=== PATIENT | male | born 1955 | race African-American/Black ===

== ENCOUNTER 2016-06-10 13:52 | Inpatient (IN) | payer MEDICAID ==
[~2016-06-10] VITALS: Ht 167.6 cm; Wt 52.2 kg
[~2016-06-10 13:52] MED LIST: ALBU18HF2 IH; ASPI325T2 PO; PHEN100C4 PO; [UNRECOGNIZED DRUG - CODE] PO
[2016-06-10] MEDS ORDERED: METHYLPREDNISOLONE SOD SUCC 125 MG/2 ML VIAL IV STA (14:38)
[2016-06-10 15:11] LABS: BASOPHILS % 0.6 % (0.0-2.0); EOSINOPHILS % 0.5 % (0.0-5.0); HEMATOCRIT. 42.5 % (42.0-52.0); HEMOGLOBIN. 14.1 g/dL (14.0-18.0); LYMPHOCYTES % 12.5 % (20.0-50.0); MEAN CORPUSCULAR HEMOGLOBIN 32.5 pg (28.0-32.0); MEAN CORPUSCULAR HGB CONC 33.1 g/dL (31.0-37.0); MEAN CORPUSCULAR VOLUME 98.3 fL (80.0-94.0); MONOCYTES % 6.2 % (2.0-8.0); NEUTROPHILS % 80.2 % (40.0-76.0); PLATELET 299 x1000/uL (130-400); RED BLOOD CELL COUNT 4.32 mill/uL (4.7-6.1); RED CELL DISTRIBUTION WIDTH 13.6 % (11.6-14.6)
[2016-06-10 15:15] LABS: CHLORIDE 106 mEq/L (98-107)
[2016-06-10] MEDS ORDERED: IPRATROPIUM/ALBUTEROL 0.5-3(2.5)MG/3ML NEB HHN ONE ×3 (15:15→20:30)
[2016-06-10 15:25] LABS: PARTIAL THROMBOPLASTIN TIME 27.4 sec (24.0-34.0); PROTHROMBIN TIME 10.3 sec
[2016-06-10 15:27] LABS: ALANINE AMINOTRANSFERASE 36 IU/L (13-61); ALBUMIN 3.8 g/dL (3.4-5.0); ANION GAP 12; CALCIUM 9.1 mg/dL (8.5-10.1); CARBON DIOXIDE 31 mEq/L (21-32); INDEX HEMOLYSI 3 (1-3); INDEX ICTERIC 1 (1-4); INDEX LIPEMIC 1 (1-3); NT PRO B-TYPE NATRIURETIC PEP 70 pg/mL (5-125); TROPONIN I < 0.02 ng/mL (0.00-0.04); UREA NITROGEN BLOOD 8 mg/dL (7-21); eGFR > 60 mL/min (>60)
[2016-06-10 16:12] LABS: CLARITY URINE CLEAR (CLEAR); COLOR URINE YELLOW (YELLOW); GLUCOSE URINE NEGATIVE (NEGATIVE); KETONES URINE 1+ (NEGATIVE); LEUKOCYTE ESTERASE URINE TRACE (NEGATIVE); NITRITE URINE POSITIVE (NEGATIVE); OCCULT BLOOD URINE TRACE (NEGATIVE); PH URINE 5.5 (4.5-8.0); PROTEIN URINE NEGATIVE (NEGATIVE); SPECIFIC GRAVITY URINE 1.021 (1.005-1.030)
[2016-06-10 17:19] LABS: BACTERIA URINE 2+; RBC URINE 0-2 /hpf (0-2); SQUAMOUS EPITHELIAL CELL URINE RARE /lpf (RARE/1+); WBC URINE 0-2 /hpf (0-2)
[2016-06-10 20:00] VITALS: BP 134/114
[2016-06-10] MEDS ORDERED: IPRATROPIUM/ALBUTEROL 0.5-3(2.5)MG/3ML NEB ONE (20:36)
[2016-06-10] MEDS ORDERED: ASPI-1035 PO (21:59)
[2016-06-10] MEDS ORDERED: INFLUENZA VIRUS VACCINE 0.5ML SYR IM ONE (22:00)
[2016-06-10] MEDS ORDERED: HYDR-3927 PO (22:01)
[2016-06-10 22:04] VITALS: BP 134/114
[2016-06-10] MEDS ORDERED: MAGNESIUM/ALUMINUM HYDROXIDE/SIMETHICONE 30ML UDC PO PRN (22:30)
[2016-06-10] MEDS ORDERED: GUAIFENESIN 200MG/10ML SUGAR FREE UDC PO PRN (22:30)
[2016-06-10] MEDS ORDERED: IPRATROPIUM/ALBUTEROL 0.5-3(2.5)MG/3ML NEB INH PRN (22:30)
[2016-06-10] MEDS ORDERED: ACETAMINOPHEN 325MG TABLET PO PRN (22:30)
[2016-06-10] MEDS ORDERED: DOCUSATE SODIUM 100MG CAPSULE PO PRN (22:30)
[2016-06-10] MEDS ORDERED: ONDANSETRON HCL 4MG/2ML VIAL IV PRN (22:30)
[2016-06-10] MEDS: AZITHROMYCIN 500 MG TABLET PO SCH (23:19)
[2016-06-10] MEDS: HYDROCODONE/ACETAMINOPHEN 5/325MG TABLET PO PRN (23:24)
[2016-06-11] VITALS: BP 123/75
[2016-06-11 00:14] LABS: CHLORIDE 102 mEq/L (98-107); INDEX HEMOLYSI 1 (1-3); INDEX ICTERIC 1 (1-4); INDEX LIPEMIC 1 (1-3)
[2016-06-11 00:20] LABS: ANION GAP 14; CARBON DIOXIDE 26 mEq/L (21-32); MAGNESIUM 1.9 mg/dL (1.8-2.4); PHENYTOIN 1.1 ug/mL (10-20); UREA NITROGEN BLOOD 13 mg/dL (7-21); eGFR > 60 mL/min (>60)
[2016-06-11] MEDS: METHYLPREDNISOLONE SOD SUCC 40 MG/ML VIAL IV SCH ×3 (01:32→19:32)
[2016-06-11] MEDS: HYDROCODONE/ACETAMINOPHEN 5/325MG TABLET PO PRN ×3 (03:25→20:15)
[2016-06-11 04:00] VITALS: BP 144/93
[2016-06-11 04:00] LABS: *AMPHETAMINES SCREEN URINE NEGATIVE (NEGATIVE); *BARBITURATES SCREEN URINE NEGATIVE (NEGATIVE); *BENZODIAZEPINES SCREEN URINE PRESUMTIVE POSITIVE (NEGATIVE); *COCAINE SCREEN URINE PRESUMTIVE POSITIVE (NEGATIVE); CANNABINOID URINE SCREEN NEGATIVE (NEGATIVE); ECSTASY MDMA SCREEN URINE NEGATIVE (NEGATIVE); METHADONE URINE SCREEN NEGATIVE (NEGATIVE); OPIATES URINE SCREEN NEGATIVE (NEGATIVE); PHENCYCLIDINE URINE SCREEN NEGATIVE (NEGATIVE)
[2016-06-11] MEDS: PHENYTOIN SODIUM EXTENDED 100MG CAPSULE PO SCH ×3 (05:49→22:05)
[2016-06-11] MEDS: OMEPRAZOLE 20MG CAPSULE EXTENDED RELEASE PO SCH ×2 (05:49→19:32)
[2016-06-11 05:50] LABS: HEMATOCRIT. 39.5 % (42.0-52.0); HEMOGLOBIN. 13.2 g/dL (14.0-18.0); MEAN CORPUSCULAR HEMOGLOBIN 32.5 pg (28.0-32.0); MEAN CORPUSCULAR HGB CONC 33.3 g/dL (31.0-37.0); MEAN CORPUSCULAR VOLUME 97.6 fL (80.0-94.0); MEAN PLATELET VOLUME 8.4 fl (7.4-10.4); PLATELET 278 x1000/uL (130-400); RED BLOOD CELL COUNT 4.05 mill/uL (4.7-6.1); RED CELL DISTRIBUTION WIDTH 13.3 % (11.6-14.6); WHITE BLOOD COUNT 8.3 x1000/uL (4.5-11.0)
[2016-06-11 06:37] LABS: CREATINE KINASE 81 IU/L (39-308); CREATINE KINASE MB FRACTION 2.3 ng/mL (0.5-3.6); HDL CHOLESTEROL 128 mg/dL (40-59); INDEX HEMOLYSI 1 (1-3); INDEX ICTERIC 1 (1-4); INDEX LIPEMIC 1 (1-3); LDL CHOLESTEROL 87 mg/dL (5-100); TRIGLYCERIDE 52 mg/dL (0-150); TROPONIN I < 0.02 ng/mL (0.00-0.04)
[2016-06-11 06:42] LABS: THYROID STIMULATING HORMONE 0.58 uIU/mL (0.36-3.74)
[2016-06-11 07:27] LABS: DIFFERENTIAL COMMENT 1
[2016-06-11 08:00] VITALS: BP 157/105
[2016-06-11] MEDS: BUDESONIDE 0.5MG/2ML NEB HHN SCH ×2 (08:25→20:44)
[2016-06-11] MEDS: FOLIC ACID 1MG TABLET PO SCH (09:36)
[2016-06-11] MEDS: MULTIVITAMINS,THER W-MINERALS TABLET PO SCH (09:36)
[2016-06-11] MEDS: AZITHROMYCIN 500 MG TABLET PO SCH (09:36)
[2016-06-11] MEDS: ENOXAPARIN 40MG/0.4ML SYR SUBCUT SCH (09:36)
[2016-06-11] MEDS: ASPIRIN 81MG EC TABLET PO SCH (09:36)
[2016-06-11] MEDS: THIAMINE HCL 100MG TABLET PO SCH (09:36)
[2016-06-11] MEDS: CLONIDINE 0.1MG TABLET PO PRN (09:37)
[2016-06-11] MEDS: ARIPIPRAZOLE 10MG TABLET PO SCH (09:38)
[2016-06-11] MEDS: NICOTINE 14MG PATCH TD SCH (09:40)
[2016-06-11 12:00] VITALS: BP 122/83
[2016-06-11] MEDS ORDERED: PHENYTOIN SODIUM 500 MG in SODIUM CHLORIDE 0.9% 100 ML IV NR (15:30)
[2016-06-11 15:53] LABS: CREATINE KINASE 73 IU/L (39-308); CREATINE KINASE MB FRACTION 1.9 ng/mL (0.5-3.6); INDEX HEMOLYSI 1 (1-3); TROPONIN I < 0.02 ng/mL (0.00-0.04)
[2016-06-11 16:00] VITALS: BP 121/82
[2016-06-11] MEDS: CEFTRIAXONE 1 G PREMIX 50 ML IV SCH (16:01)
[2016-06-11 16:05] LABS: PLATELET ESTIMATE NORMAL
[2016-06-11 20:00] VITALS: BP 115/77
[2016-06-11] MEDS: IPRATROPIUM/ALBUTEROL 0.5-3(2.5)MG/3ML NEB HHN SCH (20:44)
[2016-06-12] VITALS: BP 126/86
[2016-06-12] MEDS: IPRATROPIUM/ALBUTEROL 0.5-3(2.5)MG/3ML NEB HHN SCH ×4 (00:37→21:15)
[2016-06-12] MEDS: METHYLPREDNISOLONE SOD SUCC 40 MG/ML VIAL IV SCH ×3 (02:22→20:30)
[2016-06-12] MEDS: HYDROCODONE/ACETAMINOPHEN 5/325MG TABLET PO PRN ×3 (02:56→20:30)
[2016-06-12 04:00] VITALS: BP 122/87
[2016-06-12 05:30] LABS: HEMATOCRIT. 36.2 % (42.0-52.0); MEAN CORPUSCULAR HEMOGLOBIN 32.6 pg (28.0-32.0); MEAN CORPUSCULAR HGB CONC 33.2 g/dL (31.0-37.0); MEAN CORPUSCULAR VOLUME 98.1 fL (80.0-94.0); MEAN PLATELET VOLUME 8.3 fl (7.4-10.4); PLATELET 253 x1000/uL (130-400); RED BLOOD CELL COUNT 3.69 mill/uL (4.7-6.1); RED CELL DISTRIBUTION WIDTH 13.3 % (11.6-14.6)
[2016-06-12 05:37] LABS: ANION GAP 14; CALCIUM 8.7 mg/dL (8.5-10.1); CARBON DIOXIDE 26 mEq/L (21-32); CHLORIDE 103 mEq/L (98-107); INDEX HEMOLYSI 1 (1-3); INDEX ICTERIC 1 (1-4); INDEX LIPEMIC 1 (1-3); PHENYTOIN 10.6 ug/mL (10-20); UREA NITROGEN BLOOD 10 mg/dL (7-21); eGFR > 60 mL/min (>60)
[2016-06-12] MEDS: PHENYTOIN SODIUM EXTENDED 100MG CAPSULE PO SCH ×3 (06:40→22:29)
[2016-06-12] MEDS: OMEPRAZOLE 20MG CAPSULE EXTENDED RELEASE PO SCH ×2 (06:40→17:10)
[2016-06-12 06:47] LABS: DIFFERENTIAL COMMENT 1
[2016-06-12 08:00] VITALS: BP 143/101
[2016-06-12 08:54] LABS: PLATELET ESTIMATE NORMAL
[2016-06-12] MEDS: THIAMINE HCL 100MG TABLET PO SCH (09:11)
[2016-06-12] MEDS: ENOXAPARIN 40MG/0.4ML SYR SUBCUT SCH (09:11)
[2016-06-12] MEDS: AZITHROMYCIN 500 MG TABLET PO SCH (09:11)
[2016-06-12] MEDS: MULTIVITAMINS,THER W-MINERALS TABLET PO SCH (09:11)
[2016-06-12] MEDS: ARIPIPRAZOLE 10MG TABLET PO SCH (09:11)
[2016-06-12] MEDS: FOLIC ACID 1MG TABLET PO SCH (09:11)
[2016-06-12] MEDS: NICOTINE 14MG PATCH TD SCH (09:12)
[2016-06-12] MEDS: ASPIRIN 81MG EC TABLET PO SCH (09:12)
[2016-06-12] MEDS: CLONIDINE 0.1MG TABLET PO PRN (09:13)
[2016-06-12] MEDS: BUDESONIDE 0.5MG/2ML NEB HHN SCH ×2 (10:19→21:15)
[2016-06-12] MEDS: CEFTRIAXONE 1 G PREMIX 50 ML IV SCH (11:34)
[2016-06-12 12:00] VITALS: BP 122/87
[2016-06-12 16:00] VITALS: BP 131/92
[2016-06-12 19:56] VITALS: BP 123/96
[2016-06-13] VITALS: BP 144/95
[2016-06-13] MEDS: IPRATROPIUM/ALBUTEROL 0.5-3(2.5)MG/3ML NEB HHN SCH ×3 (00:43→20:15)
[2016-06-13] MEDS: CLONIDINE 0.1MG TABLET PO PRN ×2 (00:52→07:01)
[2016-06-13 04:00] VITALS: BP 142/107
[2016-06-13] MEDS: PHENYTOIN SODIUM EXTENDED 100MG CAPSULE PO SCH ×3 (06:19→23:10)
[2016-06-13] MEDS: OMEPRAZOLE 20MG CAPSULE EXTENDED RELEASE PO SCH (06:19)
[2016-06-13 08:00] VITALS: BP 127/93
[2016-06-13] MEDS: MULTIVITAMINS,THER W-MINERALS TABLET PO SCH (08:18)
[2016-06-13] MEDS: ASPIRIN 81MG EC TABLET PO SCH (08:18)
[2016-06-13] MEDS: THIAMINE HCL 100MG TABLET PO SCH (08:18)
[2016-06-13] MEDS: AZITHROMYCIN 500 MG TABLET PO SCH (08:18)
[2016-06-13] MEDS: ARIPIPRAZOLE 10MG TABLET PO SCH (08:18)
[2016-06-13] MEDS: NICOTINE 14MG PATCH TD SCH (08:18)
[2016-06-13] MEDS: METHYLPREDNISOLONE SOD SUCC 40 MG/ML VIAL IV SCH (08:18)
[2016-06-13] MEDS: FOLIC ACID 1MG TABLET PO SCH (08:18)
[2016-06-13] MEDS: ENOXAPARIN 40MG/0.4ML SYR SUBCUT SCH (08:19)
[2016-06-13] MEDS: BUDESONIDE 0.5MG/2ML NEB HHN SCH ×2 (10:25→20:14)
[2016-06-13] MEDS: CEFTRIAXONE 1 G PREMIX 50 ML IV SCH (11:41)
[2016-06-13 12:00] VITALS: BP 145/101
[2016-06-13 16:00] VITALS: BP 130/89
[2016-06-13 20:00] VITALS: BP 137/97
[2016-06-13] MEDS: HYDROCODONE/ACETAMINOPHEN 5/325MG TABLET PO PRN (20:27)
[2016-06-14] VITALS: BP 140/103
[2016-06-14 04:00] VITALS: BP 136/100
[2016-06-14] MEDS: IPRATROPIUM/ALBUTEROL 0.5-3(2.5)MG/3ML NEB HHN SCH ×3 (04:18→14:10)
[2016-06-14] MEDS: CLONIDINE 0.1MG TABLET PO PRN (05:16)
[2016-06-14] MEDS: PHENYTOIN SODIUM EXTENDED 100MG CAPSULE PO SCH ×2 (05:16→13:33)
[2016-06-14 06:02] LABS: BASOPHILS % 0.2 % (0.0-2.0); EOSINOPHILS % 0.7 % (0.0-5.0); HEMATOCRIT. 38.8 % (42.0-52.0); HEMOGLOBIN. 12.9 g/dL (14.0-18.0); MEAN CORPUSCULAR HEMOGLOBIN 32.3 pg (28.0-32.0); MEAN CORPUSCULAR HGB CONC 33.1 g/dL (31.0-37.0); MEAN CORPUSCULAR VOLUME 97.5 fL (80.0-94.0); MEAN PLATELET VOLUME 8.6 fl (7.4-10.4); MONOCYTES % 7.1 % (2.0-8.0); PLATELET 223 x1000/uL (130-400); RED BLOOD CELL COUNT 3.98 mill/uL (4.7-6.1); RED CELL DISTRIBUTION WIDTH 13.1 % (11.6-14.6); WHITE BLOOD COUNT 8.2 x1000/uL (4.5-11.0)
[2016-06-14 06:06] LABS: ANION GAP 14; CALCIUM 8.5 mg/dL (8.5-10.1); CARBON DIOXIDE 27 mEq/L (21-32); CHLORIDE 103 mEq/L (98-107); INDEX HEMOLYSI 1 (1-3); INDEX ICTERIC 1 (1-4); INDEX LIPEMIC 1 (1-3); UREA NITROGEN BLOOD 13 mg/dL (7-21); eGFR > 60 mL/min (>60)
[2016-06-14] MEDS ORDERED: OMEPRAZOLE 20MG CAPSULE EXTENDED RELEASE PO SCH (06:45)
[2016-06-14 08:00] VITALS: BP 156/107
[2016-06-14] MEDS: BUDESONIDE 0.5MG/2ML NEB HHN SCH (08:15)
[2016-06-14] MEDS ORDERED: PREDNISONE 20MG TABLET PO SCH (09:00)
[2016-06-14] MEDS ORDERED: FAMOTIDINE 20MG TABLET PO SCH (09:00)
[2016-06-14] MEDS: ASPIRIN 81MG EC TABLET PO SCH (09:00)
[2016-06-14] MEDS: NICOTINE 14MG PATCH TD SCH (09:28)
[2016-06-14] MEDS: ENOXAPARIN 40MG/0.4ML SYR SUBCUT SCH (09:28)
[2016-06-14] MEDS: AZITHROMYCIN 500 MG TABLET PO SCH (09:30)
[2016-06-14] MEDS: MULTIVITAMINS,THER W-MINERALS TABLET PO SCH (09:30)
[2016-06-14] MEDS: THIAMINE HCL 100MG TABLET PO SCH (09:30)
[2016-06-14] MEDS: ARIPIPRAZOLE 10MG TABLET PO SCH (09:30)
[2016-06-14] MEDS: FOLIC ACID 1MG TABLET PO SCH (09:30)
[2016-06-14 12:00] VITALS: BP 124/94
[2016-06-14] MEDS: CEFTRIAXONE 1 G PREMIX 50 ML IV SCH (13:33)
[2016-06-14] MEDS: HYDROCODONE/ACETAMINOPHEN 5/325MG TABLET PO PRN (13:44)
[2016-06-14 16:00] VITALS: BP 152/115
[2016-06-14 16:52] VITALS: BP 126/98
== END 2016-06-14 18:36 | disposition home or self-care (01) | DRG 720 ==
LOC: ER 15:10 → 5WST 18:40
PROVIDERS: ADMIT Internal Medicine; ATTEND Internal Medicine
DX: A41.9 Sepsis, unspecified organism (principal); J96.00 Acute respiratory failure, unspecified whether with hypoxia or hypercapnia; J44.1 Chronic obstructive pulmonary disease with (acute) exacerbation; N39.0 Urinary tract infection, site not specified; F14.10 Cocaine abuse, uncomplicated; F17.210 Nicotine dependence, cigarettes, uncomplicated; R73.9 Hyperglycemia, unspecified; Z87.828 Personal history of other (healed) physical injury and trauma
CPT/HCPCS: 36415; 71010; 80048; 80053; 80061; 80185; 80305; 81001; 82550; 82553; 83036; 83605; 83735; 83880; 84443; 84484; 85025; 85379; 85610; 85730; 87040; 87070; 87086; 90686; 93005; 93970; 94640; 96374; 99285; J0696; J1165; J1650; J2920; J2930; J7050; J7512; J7620; J7626

== ENCOUNTER 2016-07-08 05:07 | Inpatient (IN) | payer MEDICAID ==
[~2016-07-08] VITALS: Ht 167.6 cm; Wt 68.0 kg
[~2016-07-08 05:07] MED LIST changes: +ARIP20TA7 PO; +ASPI-1035 PO; -ASPI325T2 PO; +HYDR-3927 PO; -[UNRECOGNIZED DRUG - CODE] PO
[2016-07-08] MEDS ORDERED: ALBUTEROL (0.083%) 2.5MG/3ML NEB HHN STA ×2 (05:34→07:21)
[2016-07-08] MEDS ORDERED: METHYLPREDNISOLONE SOD SUCC 125 MG/2 ML VIAL IV STA (05:34)
[2016-07-08] MEDS ORDERED: IPRATROPIUM BROMIDE (0.02%) 0.5MG/2.5ML NEB HHN STA (05:34)
[2016-07-08] MEDS ORDERED: MAGNESIUM 2 G PREMIX 50 ML IV ONE (05:45)
[2016-07-08 05:57] LABS: BASOPHILS % 0.7 % (0.0-2.0); EOSINOPHILS % 1.5 % (0.0-5.0); HEMATOCRIT. 43.3 % (42.0-52.0); HEMOGLOBIN. 14.3 g/dL (14.0-18.0); LYMPHOCYTES % 51.4 % (20.0-50.0); MEAN CORPUSCULAR HEMOGLOBIN 32.5 pg (28.0-32.0); MEAN CORPUSCULAR VOLUME 98.7 fL (80.0-94.0); MEAN PLATELET VOLUME 8.4 fl (7.4-10.4); MONOCYTES % 9.5 % (2.0-8.0); NEUTROPHILS % 36.9 % (40.0-76.0); PLATELET 212 x1000/uL (130-400); RED BLOOD CELL COUNT 4.39 mill/uL (4.7-6.1); RED CELL DISTRIBUTION WIDTH 13.5 % (11.6-14.6); WHITE BLOOD COUNT 5.1 x1000/uL (4.5-11.0)
[2016-07-08 05:59] LABS: INDEX HEMOLYSI 1 (1-3); INDEX ICTERIC 1 (1-4); INDEX LIPEMIC 1 (1-3)
[2016-07-08 06:03] LABS: PARTIAL THROMBOPLASTIN TIME 28.3 sec (24.0-34.0); PROTHROMBIN TIME 10.5 sec
[2016-07-08 06:07] LABS: CALCIUM 8.6 mg/dL (8.5-10.1); CARBON DIOXIDE 23 mEq/L (21-32); UREA NITROGEN BLOOD 12 mg/dL (7-21); eGFR > 60 mL/min (>60)
[2016-07-08 06:08] LABS: ALANINE AMINOTRANSFERASE 22 IU/L (13-61); ALBUMIN 3.7 g/dL (3.4-5.0); ANION GAP 16; CHLORIDE 106 mEq/L (98-107)
[2016-07-08 07:39] LABS: BG BASE EXCESS -3.5 mmol/L (-2.0-2.0); BG CARBOXYHEMOGLOBIN 3.5 % (0.5-1.5); BG DEOXYHEMOGLOBIN 4.1 % (0.0-5.0); BG METHEMOGLOBIN 0.3 % (0.0-1.5); BG OXYGEN SATURATION 95.7 % (92.0-98.5); BG OXYHEMOGLOBIN 92.1 % (94.0-97.0); BG PCO2 46.7 mmHg (35.0-45.0); BG PO2 91.7 mmHg (75.0-100.0); BG SAMPLE SITE RIGHT RADIAL; BG TOTAL HEMOGLOBIN 14.1 g/dL (12.0-18.0); BG VENT MODE NASAL CANNULA
[2016-07-08 07:45] LABS: NT PRO B-TYPE NATRIURETIC PEP 26 pg/mL (5-125); TROPONIN I < 0.02 ng/mL (0.00-0.04)
[2016-07-08] MEDS ORDERED: ALBUTEROL (0.5%) 2.5MG/0.5ML NEB HHN ONE (07:56)
[2016-07-08] MEDS ORDERED: IPRATROPIUM/ALBUTEROL 0.5-3(2.5)MG/3ML NEB HHN PRN (12:45)
[2016-07-08 12:50] VITALS: BP 119/85
[2016-07-08 13:00] VITALS: BP 119/85
[2016-07-08] MEDS ORDERED: LORAZEPAM 2MG/ML CPJ IV PRN (13:00)
[2016-07-08] MEDS: ASPIRIN 81MG TABLET PO SCH (14:55)
[2016-07-08] MEDS: ARIPIPRAZOLE 10MG TABLET PO SCH (14:55)
[2016-07-08] MEDS: FOLIC ACID 1MG TABLET PO SCH (14:55)
[2016-07-08] MEDS: MULTIVITAMINS,THER W-MINERALS TABLET PO SCH (14:55)
[2016-07-08] MEDS: METHYLPREDNISOLONE SOD SUCC 125 MG/2 ML VIAL IV SCH ×2 (14:55→21:25)
[2016-07-08] MEDS: ENOXAPARIN 40MG/0.4ML SYR SUBCUT SCH (14:56)
[2016-07-08] MEDS: THIAMINE HCL 100MG TABLET PO SCH (15:09)
[2016-07-08 16:00] VITALS: BP 127/93
[2016-07-08] MEDS: NICOTINE 21MG PATCH TD SCH (16:55)
[2016-07-08 20:00] VITALS: BP 117/82
[2016-07-08] MEDS: PHENYTOIN SODIUM EXTENDED 100MG CAPSULE PO SCH (21:25)
[2016-07-09] VITALS: BP 123/77
[2016-07-09] MEDS: IPRATROPIUM/ALBUTEROL 0.5-3(2.5)MG/3ML NEB HHN SCH ×6 (00:27→20:21)
[2016-07-09] MEDS: BUDESONIDE 0.5MG/2ML NEB HHN SCH ×3 (00:28→20:21)
[2016-07-09 04:00] VITALS: BP 126/81
[2016-07-09] MEDS: METHYLPREDNISOLONE SOD SUCC 125 MG/2 ML VIAL IV SCH ×2 (05:47→13:50)
[2016-07-09 08:00] VITALS: BP 119/83
[2016-07-09] MEDS: THIAMINE HCL 100MG TABLET PO SCH (08:33)
[2016-07-09] MEDS: MULTIVITAMINS,THER W-MINERALS TABLET PO SCH (08:33)
[2016-07-09] MEDS: ARIPIPRAZOLE 10MG TABLET PO SCH (08:33)
[2016-07-09] MEDS: FOLIC ACID 1MG TABLET PO SCH (08:33)
[2016-07-09] MEDS: ENOXAPARIN 40MG/0.4ML SYR SUBCUT SCH (08:34)
[2016-07-09] MEDS: ASPIRIN 81MG TABLET PO SCH (08:34)
[2016-07-09] MEDS: NICOTINE 21MG PATCH TD SCH (09:00)
[2016-07-09 12:00] VITALS: BP 112/73
[2016-07-09 16:00] VITALS: BP 138/97
[2016-07-09] MEDS: HYDROCODONE/ACETAMINOPHEN 5/325MG TABLET PO PRN (19:10)
[2016-07-09 20:00] VITALS: BP 110/80
[2016-07-09] MEDS: PHENYTOIN SODIUM EXTENDED 100MG CAPSULE PO SCH (20:55)
[2016-07-09] MEDS: METHYLPREDNISOLONE SOD SUCC 40 MG/ML VIAL IV SCH (20:55)
[2016-07-10] VITALS: BP 123/82
[2016-07-10] MEDS: IPRATROPIUM/ALBUTEROL 0.5-3(2.5)MG/3ML NEB HHN SCH ×6 (00:56→20:53)
[2016-07-10] MEDS: HYDROCODONE/ACETAMINOPHEN 5/325MG TABLET PO PRN ×3 (05:03→16:54)
[2016-07-10 08:00] VITALS: BP 139/98
[2016-07-10] MEDS: ARIPIPRAZOLE 10MG TABLET PO SCH (08:28)
[2016-07-10] MEDS: METHYLPREDNISOLONE SOD SUCC 40 MG/ML VIAL IV SCH (08:28)
[2016-07-10] MEDS: MULTIVITAMINS,THER W-MINERALS TABLET PO SCH (08:28)
[2016-07-10] MEDS: FOLIC ACID 1MG TABLET PO SCH (08:28)
[2016-07-10] MEDS: THIAMINE HCL 100MG TABLET PO SCH (08:28)
[2016-07-10] MEDS: ASPIRIN 81MG TABLET PO SCH (08:28)
[2016-07-10] MEDS: ENOXAPARIN 40MG/0.4ML SYR SUBCUT SCH (08:29)
[2016-07-10] MEDS: NICOTINE 21MG PATCH TD SCH (08:38)
[2016-07-10] MEDS: BUDESONIDE 0.5MG/2ML NEB HHN SCH ×2 (08:38→20:53)
[2016-07-10 12:00] VITALS: BP 142/89
[2016-07-10 16:00] VITALS: BP 129/87
[2016-07-10 20:00] VITALS: BP 118/79
[2016-07-10] MEDS: PHENYTOIN SODIUM EXTENDED 100MG CAPSULE PO SCH (20:48)
[2016-07-10] MEDS ORDERED: METHYLPREDNISOLONE SOD SUCC 40 MG/ML VIAL IV SCH (21:00)
[2016-07-11] VITALS: BP 141/95
[2016-07-11] MEDS: IPRATROPIUM/ALBUTEROL 0.5-3(2.5)MG/3ML NEB HHN SCH ×5 (00:35→16:12)
[2016-07-11 04:00] VITALS: BP 135/90
[2016-07-11 06:51] LABS: BASOPHILS % 0.1 % (0.0-2.0); HEMATOCRIT. 37.2 % (42.0-52.0); HEMOGLOBIN. 12.3 g/dL (14.0-18.0); LYMPHOCYTES % 9.3 % (20.0-50.0); MEAN CORPUSCULAR HEMOGLOBIN 31.8 pg (28.0-32.0); MEAN CORPUSCULAR HGB CONC 33.1 g/dL (31.0-37.0); MEAN CORPUSCULAR VOLUME 96.2 fL (80.0-94.0); MEAN PLATELET VOLUME 9.1 fl (7.4-10.4); MONOCYTES % 7.1 % (2.0-8.0); NEUTROPHILS % 83.5 % (40.0-76.0); PLATELET 183 x1000/uL (130-400); RED BLOOD CELL COUNT 3.87 mill/uL (4.7-6.1); RED CELL DISTRIBUTION WIDTH 13.4 % (11.6-14.6); WHITE BLOOD COUNT 7.3 x1000/uL (4.5-11.0)
[2016-07-11] MEDS: BUDESONIDE 0.5MG/2ML NEB HHN SCH (07:45)
[2016-07-11 08:00] VITALS: BP 133/94
[2016-07-11 08:13] LABS: ALBUMIN 3.3 g/dL (3.4-5.0); ANION GAP 14; CALCIUM 8.9 mg/dL (8.5-10.1); CARBON DIOXIDE 26 mEq/L (21-32); CHLORIDE 102 mEq/L (98-107); INDEX HEMOLYSI 1 (1-3); INDEX ICTERIC 1 (1-4); INDEX LIPEMIC 1 (1-3); UREA NITROGEN BLOOD 15 mg/dL (7-21)
[2016-07-11 08:17] LABS: ALANINE AMINOTRANSFERASE 17 IU/L (13-61); eGFR > 60 mL/min (>60)
[2016-07-11] MEDS: NICOTINE 21MG PATCH TD SCH (08:38)
[2016-07-11] MEDS: THIAMINE HCL 100MG TABLET PO SCH (08:39)
[2016-07-11] MEDS: FOLIC ACID 1MG TABLET PO SCH (08:39)
[2016-07-11] MEDS: ASPIRIN 81MG TABLET PO SCH (08:39)
[2016-07-11] MEDS: ARIPIPRAZOLE 10MG TABLET PO SCH (08:39)
[2016-07-11] MEDS: MULTIVITAMINS,THER W-MINERALS TABLET PO SCH (08:41)
[2016-07-11] MEDS: HYDROCODONE/ACETAMINOPHEN 5/325MG TABLET PO PRN (08:41)
[2016-07-11] MEDS: ENOXAPARIN 40MG/0.4ML SYR SUBCUT SCH (08:42)
[2016-07-11] MEDS ORDERED: PREDNISONE 20MG TABLET PO SCH (09:00)
[2016-07-11 12:00] VITALS: BP 142/98
== END 2016-07-11 17:50 | disposition home or self-care (01) | DRG 140 ==
LOC: ER 05:29 → 7WST 13:08
PROVIDERS: ADMIT Hospitalist; ATTEND Hospitalist
DX: J44.1 Chronic obstructive pulmonary disease with (acute) exacerbation (principal); J96.00 Acute respiratory failure, unspecified whether with hypoxia or hypercapnia; E43 Unspecified severe protein-calorie malnutrition; G40.909 Epilepsy, unspecified, not intractable, without status epilepticus; I50.9 Heart failure, unspecified; F14.10 Cocaine abuse, uncomplicated; I25.10 Atherosclerotic heart disease of native coronary artery without angina pectoris; F10.10 Alcohol abuse, uncomplicated; Y90.9 Presence of alcohol in blood, level not specified; F17.210 Nicotine dependence, cigarettes, uncomplicated; Z68.24 Body mass index [BMI] 24.0-24.9, adult
CPT/HCPCS: 36415; 36600; 71010; 80053; 80185; 82375; 82805; 83880; 84484; 85025; 85610; 85730; 93005; 94640; 96374; 96375; 99285; J1650; J2920; J2930; J3475; J7512; J7611; J7620; J7626

== ENCOUNTER 2016-08-31 20:35 | Inpatient (IN) | payer MEDICAID ==
[~2016-08-31] VITALS: Ht 170.2 cm; Wt 50.8 kg
[~2016-08-31 20:35] MED LIST changes: +ARIP20TA2 PO; -ARIP20TA7 PO; -ASPI-1035 PO; +ASPI-1159 PO
[2016-08-31] MEDS ORDERED: PREDNISONE 20MG TABLET PO STA (21:00)
[2016-08-31] MEDS ORDERED: IPRATROPIUM BROMIDE (0.02%) 0.5MG/2.5ML NEB HHN STA (21:00)
[2016-08-31] MEDS ORDERED: ALBUTEROL (0.083%) 2.5MG/3ML NEB HHN STA (21:00)
[2016-08-31] MEDS ORDERED: SODIUM CHLORIDE 0.9% 1,000 ML IV ONE (21:00)
[2016-08-31] MEDS ORDERED: ALBUTEROL (0.5%) 2.5MG/0.5ML NEB HHN ONE (21:21)
[2016-08-31 21:28] LABS: HEMATOCRIT. 35.2 % (42.0-52.0); HEMOGLOBIN. 11.8 g/dL (14.0-18.0); MEAN CORPUSCULAR HEMOGLOBIN 32.8 pg (28.0-32.0); MEAN CORPUSCULAR VOLUME 97.5 fL (80.0-94.0); MEAN PLATELET VOLUME 8.2 fl (7.4-10.4); PLATELET 292 x1000/uL (130-400); RED BLOOD CELL COUNT 3.61 mill/uL (4.7-6.1); RED CELL DISTRIBUTION WIDTH 12.7 % (11.6-14.6)
[2016-08-31 21:32] LABS: CHLORIDE 103 mEq/L (98-107)
[2016-08-31 21:38] LABS: CARBON DIOXIDE 28 mEq/L (21-32); ETHANOL BLOOD 32 mg/dL; PHENYTOIN 0.8 ug/mL (10-20)
[2016-08-31 21:48] LABS: PLATELET ESTIMATE NORMAL
[2016-08-31] MEDS ORDERED: PHENYTOIN SODIUM 1,000 MG in SODIUM CHLORIDE 0.9% 100 ML IV ONE (22:00)
[2016-08-31] MEDS ORDERED: AZITHROMYCIN 500 MG in DEXT 5% WATER 250 ML IV SCH (22:00)
[2016-08-31] MEDS ORDERED: CEFTRIAXONE 1 G PREMIX 50 ML IV ONE (22:00)
[2016-08-31] MEDS ORDERED: MORPHINE SULFATE 4 MG/ML CPJ (NOT FOR IM USE) IV ONE (23:00)
[2016-08-31] MEDS ORDERED: ONDANSETRON HCL 4MG/2ML VIAL IV PRN (23:30)
[2016-08-31] MEDS ORDERED: MAGNESIUM/ALUMINUM HYDROXIDE/SIMETHICONE 30ML UDC PO PRN (23:30)
[2016-08-31] MEDS ORDERED: GUAIFENESIN 200MG/10ML SUGAR FREE UDC PO PRN (23:30)
[2016-08-31] MEDS ORDERED: DOCUSATE SODIUM 100MG CAPSULE PO PRN (23:30)
[2016-08-31] MEDS ORDERED: IPRATROPIUM/ALBUTEROL 0.5-3(2.5)MG/3ML NEB INH PRN (23:30)
[2016-08-31] MEDS ORDERED: ACETAMINOPHEN 325MG TABLET PO PRN (23:30)
[2016-09-01] VITALS (7 sets, daily range): BP systolic 106–131; BP diastolic 67–89
[2016-09-01 00:20] LABS: CHLORIDE 106 mEq/L (98-107)
[2016-09-01 00:25] LABS: CARBON DIOXIDE 29 mEq/L (21-32)
[2016-09-01] MEDS: HYDROCODONE/ACETAMINOPHEN 5/325MG TABLET PO PRN (01:51)
[2016-09-01] MEDS: ENOXAPARIN 40MG/0.4ML SYR SUBCUT SCH (02:14)
[2016-09-01 04:55] LABS: *AMPHETAMINES SCREEN URINE NEGATIVE (NEGATIVE); *BARBITURATES SCREEN URINE NEGATIVE (NEGATIVE); *BENZODIAZEPINES SCREEN URINE NEGATIVE (NEGATIVE); *COCAINE SCREEN URINE PRESUMTIVE POSITIVE (NEGATIVE); CANNABINOID URINE SCREEN NEGATIVE (NEGATIVE); METHADONE URINE SCREEN NEGATIVE (NEGATIVE); OPIATES URINE SCREEN PRESUMTIVE POSITIVE (NEGATIVE); PHENCYCLIDINE URINE SCREEN NEGATIVE (NEGATIVE)
[2016-09-01] MEDS: METHYLPREDNISOLONE SOD SUCC 40 MG/ML VIAL IV SCH ×3 (05:16→21:27)
[2016-09-01] MEDS: PHENYTOIN SODIUM EXTENDED 100MG CAPSULE PO SCH ×3 (05:16→21:27)
[2016-09-01 06:33] LABS: BASOPHILS % 0.1 % (0.0-2.0); HEMATOCRIT. 32.8 % (42.0-52.0); LYMPHOCYTES % 8.2 % (20.0-50.0); MEAN CORPUSCULAR HEMOGLOBIN 33.1 pg (28.0-32.0); MEAN CORPUSCULAR VOLUME 98.5 fL (80.0-94.0); MEAN PLATELET VOLUME 8.4 fl (7.4-10.4); MONOCYTES % 3.9 % (2.0-8.0); NEUTROPHILS % 87.8 % (40.0-76.0); PLATELET 256 x1000/uL (130-400); RED BLOOD CELL COUNT 3.33 mill/uL (4.7-6.1); RED CELL DISTRIBUTION WIDTH 12.7 % (11.6-14.6)
[2016-09-01 06:55] LABS: CREATINE KINASE 84 IU/L (39-308); CREATINE KINASE MB FRACTION 3.4 ng/mL (0.5-3.6); HDL CHOLESTEROL 85 mg/dL (40-59); LDL CHOLESTEROL 65 mg/dL (5-100); TROPONIN I < 0.02 ng/mL (0.00-0.04)
[2016-09-01] MEDS ORDERED: MEDICATION NOT ON FORMULARY EA (Aripiprazole (Abilify) 1 TAB) PO SCH (09:00)
[2016-09-01] MEDS: FOLIC ACID 1MG TABLET PO SCH (09:32)
[2016-09-01] MEDS: THIAMINE HCL 100MG TABLET PO SCH (09:32)
[2016-09-01] MEDS: MULTIVITAMINS,THER W-MINERALS TABLET PO SCH (09:32)
[2016-09-01] MEDS: ARIPIPRAZOLE 10MG TABLET PO SCH (09:32)
[2016-09-01] MEDS ORDERED: MORPHINE SULFATE 2 MG/ML CPJ (NOT FOR IM USE) IV PRN (10:45)
[2016-09-01] MEDS: MORPHINE SULFATE 2 MG/ML CPJ (NOT FOR IM USE) IV PRN ×2 (12:45→22:15)
[2016-09-01] MEDS ORDERED: MAGNESIUM 2 G PREMIX 50 ML IV NR (13:00)
[2016-09-01 16:23] LABS: CREATINE KINASE 96 IU/L (39-308); CREATINE KINASE MB FRACTION 2.8 ng/mL (0.5-3.6); TROPONIN I < 0.02 ng/mL (0.00-0.04)
[2016-09-01] MEDS: AZITHROMYCIN 500 MG TABLET PO SCH (21:27)
[2016-09-01] MEDS: CEFTRIAXONE 1 G PREMIX 50 ML IV SCH (22:18)
[2016-09-02] VITALS: BP 122/80
[2016-09-02] MEDS: ENOXAPARIN 40MG/0.4ML SYR SUBCUT SCH (03:11)
[2016-09-02 04:00] VITALS: BP 124/72
[2016-09-02] MEDS: METHYLPREDNISOLONE SOD SUCC 40 MG/ML VIAL IV SCH ×3 (06:26→20:00)
[2016-09-02] MEDS: MORPHINE SULFATE 2 MG/ML CPJ (NOT FOR IM USE) IV PRN ×3 (06:37→20:25)
[2016-09-02] MEDS: FOLIC ACID 1MG TABLET PO SCH (08:07)
[2016-09-02] MEDS: ARIPIPRAZOLE 10MG TABLET PO SCH (08:07)
[2016-09-02] MEDS: CLONIDINE 0.1MG TABLET PO PRN ×2 (08:07→20:27)
[2016-09-02] MEDS: MULTIVITAMINS,THER W-MINERALS TABLET PO SCH (08:08)
[2016-09-02] MEDS: THIAMINE HCL 100MG TABLET PO SCH (08:08)
[2016-09-02 12:00] VITALS: BP 152/108
[2016-09-02] MEDS ORDERED: LORAZEPAM 2MG/ML CPJ IV PRN (14:00)
[2016-09-02] MEDS ORDERED: NICOTINE 21MG PATCH TD SCH (15:00)
[2016-09-02 16:00] VITALS: BP 134/91
[2016-09-02 19:50] LABS: BASOPHILS % 0.1 % (0.0-2.0); EOSINOPHILS % 0.1 % (0.0-5.0); HEMATOCRIT. 33.8 % (42.0-52.0); HEMOGLOBIN. 11.2 g/dL (14.0-18.0); LYMPHOCYTES % 16.8 % (20.0-50.0); MEAN CORPUSCULAR HEMOGLOBIN 32.5 pg (28.0-32.0); MEAN CORPUSCULAR VOLUME 98.2 fL (80.0-94.0); MEAN PLATELET VOLUME 8.6 fl (7.4-10.4); MONOCYTES % 7.6 % (2.0-8.0); NEUTROPHILS % 75.4 % (40.0-76.0); PLATELET 305 x1000/uL (130-400); RED BLOOD CELL COUNT 3.44 mill/uL (4.7-6.1); RED CELL DISTRIBUTION WIDTH 12.4 % (11.6-14.6)
[2016-09-02 19:57] LABS: CARBON DIOXIDE 30 mEq/L (21-32); CHLORIDE 103 mEq/L (98-107)
[2016-09-02 20:00] VITALS: BP 145/104
[2016-09-02] MEDS: AZITHROMYCIN 500 MG TABLET PO SCH (20:00)
[2016-09-02] MEDS: CEFTRIAXONE 1 G PREMIX 50 ML IV SCH (20:00)
[2016-09-02] MEDS: IPRATROPIUM/ALBUTEROL 0.5-3(2.5)MG/3ML NEB HHN SCH (20:22)
[2016-09-02] MEDS: PHENYTOIN SODIUM EXTENDED 100MG CAPSULE PO SCH (20:29)
[2016-09-02] MEDS: HYDROCODONE/ACETAMINOPHEN 5/325MG TABLET PO PRN (20:43)
[2016-09-02 20:46] VITALS: BP 136/89
[2016-09-03] VITALS: BP 122/75
[2016-09-03] MEDS: IPRATROPIUM/ALBUTEROL 0.5-3(2.5)MG/3ML NEB HHN SCH (00:01)
[2016-09-03] MEDS ORDERED: NICOTINE 21MG PATCH TD SCH (09:00)
== END 2016-09-03 01:00 | disposition short-term general hospital (02) | DRG 774 ==
LOC: ER 20:35 → 5WST 22:29 → ER 22:57 → ENRESERV 23:52
PROVIDERS: ADMIT Internal Medicine; ATTEND Internal Medicine
DX: F10.239 Alcohol dependence with withdrawal, unspecified (principal); F14.10 Cocaine abuse, uncomplicated; J96.00 Acute respiratory failure, unspecified whether with hypoxia or hypercapnia; E43 Unspecified severe protein-calorie malnutrition; G40.909 Epilepsy, unspecified, not intractable, without status epilepticus; F17.210 Nicotine dependence, cigarettes, uncomplicated; Z60.2 Problems related to living alone; D63.8 Anemia in other chronic diseases classified elsewhere; J44.1 Chronic obstructive pulmonary disease with (acute) exacerbation; Z91.19 Patient's noncompliance with other medical treatment and regimen; Z68.1 Body mass index [BMI] 19.9 or less, adult; Z71.3 Dietary counseling and surveillance; Z71.51 Drug abuse counseling and surveillance of drug abuser
CPT/HCPCS: 36415; 70551; 71010; 80048; 80053; 80061; 80185; 80305; 82550; 82553; 83735; 84443; 84484; 85025; 87040; 93005; 93970; 94640; 96365; 96375; 97163; 99285; C1893; G0482; J0456; J0696; J1165; J1650; J2270; J2920; J3475; J7030; J7050; J7060; J7512; J7611; J7620

== ENCOUNTER 2018-05-17 19:12 | Inpatient (IN) | payer MEDICAID ==
[~2018-05-17] VITALS: Ht 165.1 cm; Wt 55.3 kg
[~2018-05-17 19:12] MED LIST changes: -ALBU18HF2 IH; -ARIP20TA2 PO; +ASPI-1158 PO; -ASPI-1159 PO; -HYDR-3927 PO
[2018-05-18] MEDS ORDERED: ALBUTEROL (0.083%) 2.5MG/3ML NEB HHN STA (00:03)
[2018-05-18 01:57] LABS: BASOPHILS % 1.1 % (0.0-2.0); EOSINOPHILS % 3.3 % (0.0-5.0); HEMATOCRIT. 33.8 % (42.0-52.0); HEMOGLOBIN. 11.1 g/dL (14.0-18.0); LYMPHOCYTES % 28.5 % (20.0-50.0); MEAN CORPUSCULAR HEMOGLOBIN 30.7 pg (28.0-32.0); MEAN CORPUSCULAR VOLUME 93.2 fL (80.0-94.0); MEAN PLATELET VOLUME 8.3 fl (7.4-10.4); MONOCYTES % 10.7 % (2.0-8.0); NEUTROPHILS % 56.4 % (40.0-76.0); PLATELET 254 x1000/uL (130-400); RED BLOOD CELL COUNT 3.62 mill/uL (4.7-6.1); RED CELL DISTRIBUTION WIDTH 13.3 % (11.6-14.6)
[2018-05-18 02:00] LABS: CHLORIDE 109 mEq/L (98-107)
[2018-05-18] MEDS: MORPHINE SULFATE 4 MG/ML CPJ (NOT FOR IM USE) IV PRN ×3 (07:09→20:50)
[2018-05-18] MEDS ORDERED: IPRATROPIUM/ALBUTEROL 0.5-3(2.5)MG/3ML NEB INH PRN (08:30)
[2018-05-18] MEDS ORDERED: ONDANSETRON HCL 4MG/2ML INJ IV PRN (08:30)
[2018-05-18] MEDS ORDERED: HYDROCODONE/ACETAMINOPHEN 5/325MG TABLET PO PRN (08:30)
[2018-05-18] MEDS ORDERED: ACETAMINOPHEN 325MG TABLET PO PRN (08:30)
[2018-05-18] MEDS ORDERED: GUAIFENESIN 200MG/10ML SUGAR FREE UDC PO PRN (08:30)
[2018-05-18 08:45] VITALS: BP 128/85
[2018-05-18 10:23] LABS: PHOSPHORUS 3.4 mg/dL (2.5-4.9)
[2018-05-18] MEDS: ENOXAPARIN 40MG/0.4ML SYR SUBCUT SCH (10:48)
[2018-05-18 12:00] VITALS: BP 123/77
[2018-05-18] MEDS ORDERED: IPRATROPIUM/ALBUTEROL 0.5-3(2.5)MG/3ML NEB HHN PRN (14:45)
[2018-05-18 15:21] LABS: CREATINE KINASE 123 IU/L (39-308)
[2018-05-18] MEDS: IPRATROPIUM/ALBUTEROL 0.5-3(2.5)MG/3ML NEB HHN SCH ×2 (15:33→20:34)
[2018-05-18] MEDS ORDERED: LORAZEPAM 2MG/ML CPJ IV PRN (15:45)
[2018-05-18 16:00] VITALS: BP 118/69
[2018-05-18] MEDS: MULTIVITAMINS,THER W-MINERALS TABLET PO SCH (16:43)
[2018-05-18] MEDS: THIAMINE HCL 100MG TABLET PO SCH (16:43)
[2018-05-18] MEDS: FOLIC ACID 1MG TABLET PO SCH (16:43)
[2018-05-18] MEDS: METHYLPREDNISOLONE SOD SUCC 40 MG/ML VIAL IV SCH ×2 (16:43→21:49)
[2018-05-18 18:28] LABS: CLARITY URINE CLEAR (CLEAR); COLOR URINE YELLOW (YELLOW); KETONES URINE NEGATIVE (NEGATIVE); LEUKOCYTE ESTERASE URINE NEGATIVE (NEGATIVE); NITRITE URINE NEGATIVE (NEGATIVE); OCCULT BLOOD URINE NEGATIVE (NEGATIVE); PROTEIN URINE NEGATIVE (NEGATIVE); SPECIFIC GRAVITY URINE 1.013 (1.005-1.030)
[2018-05-18 18:51] LABS: *AMPHETAMINES SCREEN URINE NEGATIVE (NEGATIVE); *BARBITURATES SCREEN URINE NEGATIVE (NEGATIVE); *BENZODIAZEPINES SCREEN URINE NEGATIVE (NEGATIVE); *COCAINE SCREEN URINE NEGATIVE (NEGATIVE); METHADONE URINE SCREEN NEGATIVE (NEGATIVE); OPIATES URINE SCREEN PRESUMTIVE POSITIVE (NEGATIVE)
[2018-05-18 18:52] LABS: CANNABINOID URINE SCREEN NEGATIVE (NEGATIVE); PHENCYCLIDINE URINE SCREEN NEGATIVE (NEGATIVE)
[2018-05-18 20:00] VITALS: BP 129/87
[2018-05-18] MEDS: GUAIFENESIN 600MG ER TABLET PO SCH (20:48)
[2018-05-18] MEDS: FLUTICASONE PROPIONATE 50MCG/SPRAY BOTTLE BOTHNSTRLS SCH (20:48)
[2018-05-18] MEDS ORDERED: PNEUMOCOCCAL 23-VAL P-SAC VAC 0.5 ML IM ONE (21:15)
[2018-05-19] VITALS: BP 122/97
[2018-05-19] MEDS: IPRATROPIUM/ALBUTEROL 0.5-3(2.5)MG/3ML NEB HHN SCH ×7 (00:08→23:56)
[2018-05-19 00:34] LABS: CREATINE KINASE 104 IU/L (39-308)
[2018-05-19] MEDS: METHYLPREDNISOLONE SOD SUCC 40 MG/ML VIAL IV SCH ×3 (05:02→21:17)
[2018-05-19] MEDS: MORPHINE SULFATE 4 MG/ML CPJ (NOT FOR IM USE) IV PRN ×4 (05:10→21:18)
[2018-05-19 05:15] VITALS: BP 114/62
[2018-05-19 06:19] LABS: HEMATOCRIT. 30.5 % (42.0-52.0); HEMOGLOBIN. 10.2 g/dL (14.0-18.0); MEAN CORPUSCULAR HEMOGLOBIN 30.9 pg (28.0-32.0); MEAN CORPUSCULAR VOLUME 92.2 fL (80.0-94.0); MEAN PLATELET VOLUME 8.2 fl (7.4-10.4); PLATELET 245 x1000/uL (130-400); RED BLOOD CELL COUNT 3.31 mill/uL (4.7-6.1); RED CELL DISTRIBUTION WIDTH 12.9 % (11.6-14.6)
[2018-05-19 06:22] LABS: CHLORIDE 105 mEq/L (98-107)
[2018-05-19 06:42] LABS: HDL CHOLESTEROL 82 mg/dL (40-59)
[2018-05-19 06:44] LABS: LDL CHOLESTEROL 84 mg/dL (5-100)
[2018-05-19] MEDS: THIAMINE HCL 100MG TABLET PO SCH (08:29)
[2018-05-19] MEDS: FOLIC ACID 1MG TABLET PO SCH (08:29)
[2018-05-19] MEDS: MULTIVITAMINS,THER W-MINERALS TABLET PO SCH (08:29)
[2018-05-19] MEDS: GUAIFENESIN 600MG ER TABLET PO SCH ×2 (08:29→21:17)
[2018-05-19] MEDS: FLUTICASONE PROPIONATE 50MCG/SPRAY BOTTLE BOTHNSTRLS SCH ×2 (08:30→21:42)
[2018-05-19] MEDS: ENOXAPARIN 40MG/0.4ML SYR SUBCUT SCH (08:30)
[2018-05-19 09:48] LABS: PLATELET ESTIMATE NORMAL
[2018-05-19 12:00] VITALS: BP 119/70
[2018-05-19] MEDS ORDERED: AZITHROMYCIN 500 MG TABLET PO NR (14:00)
[2018-05-19] MEDS: DIATR MEGLU/DIATRIZOATE SOLN 30ML PO SCH ×2 (14:54→16:00)
[2018-05-19 16:06] VITALS: BP 129/83
[2018-05-19 20:00] VITALS: BP 121/65
[2018-05-20] VITALS: BP 125/50
[2018-05-20] MEDS: MORPHINE SULFATE 4 MG/ML CPJ (NOT FOR IM USE) IV PRN ×5 (02:16→21:57)
[2018-05-20] MEDS: DOCUSATE SODIUM 100MG CAPSULE PO PRN ×3 (02:16→20:30)
[2018-05-20] MEDS: IPRATROPIUM/ALBUTEROL 0.5-3(2.5)MG/3ML NEB HHN SCH ×5 (03:33→20:21)
[2018-05-20 04:00] VITALS: BP 105/58
[2018-05-20] MEDS: METHYLPREDNISOLONE SOD SUCC 40 MG/ML VIAL IV SCH ×3 (06:06→21:52)
[2018-05-20] MEDS ORDERED: DIATR MEGLU/DIATRIZOATE SOLN 30ML PO SCH (07:00)
[2018-05-20 08:00] VITALS: BP 145/83
[2018-05-20] MEDS: MULTIVITAMINS,THER W-MINERALS TABLET PO SCH (09:00)
[2018-05-20] MEDS ORDERED: IOHEXOL-300 100 ML BOTTLE ONE (09:30)
[2018-05-20 10:13] LABS: HIV SCREEN 4G Non Reactive (Non Reactive)
[2018-05-20] MEDS: GUAIFENESIN 600MG ER TABLET PO SCH ×2 (10:27→20:31)
[2018-05-20] MEDS: FOLIC ACID 1MG TABLET PO SCH (10:27)
[2018-05-20] MEDS: AZITHROMYCIN 250 MG TABLET PO SCH (10:28)
[2018-05-20] MEDS: ENOXAPARIN 40MG/0.4ML SYR SUBCUT SCH (10:28)
[2018-05-20] MEDS: THIAMINE HCL 100MG TABLET PO SCH (10:28)
[2018-05-20] MEDS: FLUTICASONE PROPIONATE 50MCG/SPRAY BOTTLE BOTHNSTRLS SCH ×2 (10:30→20:30)
[2018-05-20 12:00] VITALS: BP 139/81
[2018-05-20 16:00] VITALS: BP 133/62
[2018-05-20 20:00] VITALS: BP 116/57
[2018-05-21] VITALS: BP 128/66
[2018-05-21] MEDS: IPRATROPIUM/ALBUTEROL 0.5-3(2.5)MG/3ML NEB HHN SCH ×5 (00:16→14:51)
[2018-05-21] MEDS: MORPHINE SULFATE 4 MG/ML CPJ (NOT FOR IM USE) IV PRN ×3 (02:18→15:25)
[2018-05-21 04:00] VITALS: BP 122/81
[2018-05-21] MEDS: DOCUSATE SODIUM 100MG CAPSULE PO PRN (06:03)
[2018-05-21] MEDS: METHYLPREDNISOLONE SOD SUCC 40 MG/ML VIAL IV SCH ×2 (06:03→15:26)
[2018-05-21 07:57] LABS: HEMATOCRIT. 31.6 % (42.0-52.0); HEMOGLOBIN. 10.5 g/dL (14.0-18.0); MEAN CORPUSCULAR VOLUME 92.8 fL (80.0-94.0); MEAN PLATELET VOLUME 9.3 fl (7.4-10.4); PLATELET 276 x1000/uL (130-400); RED CELL DISTRIBUTION WIDTH 13.5 % (11.6-14.6)
[2018-05-21 08:00] VITALS: BP 141/89
[2018-05-21] MEDS: GUAIFENESIN 600MG ER TABLET PO SCH (08:40)
[2018-05-21] MEDS: FOLIC ACID 1MG TABLET PO SCH (08:40)
[2018-05-21] MEDS: AZITHROMYCIN 250 MG TABLET PO SCH (08:40)
[2018-05-21] MEDS: THIAMINE HCL 100MG TABLET PO SCH (08:40)
[2018-05-21] MEDS: MULTIVITAMINS,THER W-MINERALS TABLET PO SCH (08:40)
[2018-05-21] MEDS: ENOXAPARIN 40MG/0.4ML SYR SUBCUT SCH (08:41)
[2018-05-21] MEDS: FLUTICASONE PROPIONATE 50MCG/SPRAY BOTTLE BOTHNSTRLS SCH (08:42)
[2018-05-21 09:18] LABS: CHLORIDE 103 mEq/L (98-107)
[2018-05-21 12:00] VITALS: BP 144/59
[2018-05-21 13:57] LABS: PLATELET ESTIMATE NORMAL
[2018-05-21 16:00] VITALS: BP 132/84
[2018-05-21 16:41] VITALS: BP 132/84
[2018-05-21] MEDS ORDERED: CLONIDINE 0.1MG TABLET PO NR (17:30)
[2018-05-22 08:14] LABS: QFT MITOGEN VALUE 0.04 IU/mL (.); QFT TB GOLD PLUS Indeterminate (Negative); QFT TB1 AG VALUE 0.02 IU/mL (.)
== END 2018-05-21 17:45 | disposition short-term general hospital (02) | DRG 133 ==
LOC: ER 20:36 → EDBEDREQ 05-18 01:41 → ENRESERV 05-18 07:55 → 8WST 05-18 09:25
PROVIDERS: ADMIT Internal Medicine; ATTEND Internal Medicine
DX: J96.00 Acute respiratory failure, unspecified whether with hypoxia or hypercapnia (principal); D70.9 Neutropenia, unspecified; Z99.81 Dependence on supplemental oxygen; J44.1 Chronic obstructive pulmonary disease with (acute) exacerbation; E44.1 Mild protein-calorie malnutrition; D37.4 Neoplasm of uncertain behavior of colon; D50.9 Iron deficiency anemia, unspecified; F10.10 Alcohol abuse, uncomplicated; I10 Essential (primary) hypertension; G40.909 Epilepsy, unspecified, not intractable, without status epilepticus; F17.210 Nicotine dependence, cigarettes, uncomplicated; K31.89 Other diseases of stomach and duodenum; K40.90 Unilateral inguinal hernia, without obstruction or gangrene, not specified as recurrent; F11.90 Opioid use, unspecified, uncomplicated; K59.00 Constipation, unspecified; K63.9 Disease of intestine, unspecified; F14.90 Cocaine use, unspecified, uncomplicated; R73.9 Hyperglycemia, unspecified; Z79.82 Long term (current) use of aspirin; Z79.899 Other long term (current) drug therapy; Z68.20 Body mass index [BMI] 20.0-20.9, adult
CPT/HCPCS: 36415; 71045; 71270; 74178; 80048; 80061; 80305; 82550; 83036; 83735; 83880; 84100; 84443; 84484; 85379; 86480; 87389; 87804; 90732; 93005; 93306; 93970; 94618; 94640; 94660; 97162; 97166; 99285; J1650; J2060; J2270; J2920; J7611; J7620; Q9963; Q9967

== ENCOUNTER 2018-07-12 04:21 | Inpatient (IN) | payer MEDICAID ==
[~2018-07-12] VITALS: Ht 198.1 cm; Wt 59.0 kg
[2018-07-12] MEDS ORDERED: METHYLPREDNISOLONE SOD SUCC 125 MG/2 ML VIAL IV STA (06:39)
[2018-07-12] MEDS ORDERED: IPRATROPIUM BROMIDE (0.02%) 0.5MG/2.5ML NEB HHN STA (06:39)
[2018-07-12] MEDS ORDERED: KETOROLAC 30MG/ML VIAL IV STA (06:40)
[2018-07-12] MEDS: ALBUTEROL (0.083%) 2.5MG/3ML NEB HHN SCH ×3 (07:02→07:54)
[2018-07-12 07:18] LABS: CHLORIDE 108 mEq/L (98-107)
[2018-07-12 07:19] LABS: BASOPHILS % 1.2 % (0.0-2.0); EOSINOPHILS % 1.5 % (0.0-5.0); HEMATOCRIT. 36.8 % (42.0-52.0); HEMOGLOBIN. 12.2 g/dL (14.0-18.0); LYMPHOCYTES % 22.3 % (20.0-50.0); MEAN CORPUSCULAR HEMOGLOBIN 31.5 pg (28.0-32.0); MEAN CORPUSCULAR VOLUME 95.3 fL (80.0-94.0); MEAN PLATELET VOLUME 6.9 fl (7.4-10.4); MONOCYTES % 8.8 % (2.0-8.0); NEUTROPHILS % 66.2 % (40.0-76.0); PLATELET 289 x1000/uL (130-400); RED BLOOD CELL COUNT 3.86 mill/uL (4.7-6.1); RED CELL DISTRIBUTION WIDTH 15.8 % (11.6-14.6)
[2018-07-12] MEDS ORDERED: ALBUTEROL (0.083%) 2.5MG/3ML NEB HHN STA (08:56)
[2018-07-12] MEDS ORDERED: MORPHINE SULFATE 4 MG/ML CPJ (NOT FOR IM USE) IV ONE (09:00)
[2018-07-12] MEDS ORDERED: CLONIDINE 0.1MG TABLET PO PRN (10:15)
[2018-07-12] MEDS ORDERED: MAGNESIUM/ALUMINUM HYDROXIDE/SIMETHICONE 30ML UDC PO PRN (10:15)
[2018-07-12] MEDS ORDERED: DOCUSATE SODIUM 100MG CAPSULE PO PRN (10:15)
[2018-07-12] MEDS ORDERED: DIPHENHYDRAMINE 50MG/ML VIAL IV PRN (10:15)
[2018-07-12] MEDS ORDERED: ACETAMINOPHEN 325MG TABLET PO PRN (10:15)
[2018-07-12] MEDS ORDERED: ONDANSETRON HCL 4MG/2ML INJ IV PRN (10:15)
[2018-07-12] MEDS ORDERED: IPRATROPIUM/ALBUTEROL 0.5-3(2.5)MG/3ML NEB INH PRN (10:15)
[2018-07-12] MEDS ORDERED: HYDROCODONE/ACETAMINOPHEN 5/325MG TABLET PO PRN (10:15)
[2018-07-12] MEDS ORDERED: GUAIFENESIN 200MG/10ML SUGAR FREE UDC PO PRN (10:15)
[2018-07-12 11:15] LABS: PHOSPHORUS 3.2 mg/dL (2.5-4.9)
[2018-07-12 12:00] VITALS: BP 146/97
[2018-07-12 12:10] LABS: HEPATITIS B SURFACE ANTIGEN NEGATIVE
[2018-07-12 12:39] LABS: HEPATITIS A AB IGM NEGATIVE (NEGATIVE)
[2018-07-12] MEDS: ENOXAPARIN 40MG/0.4ML SYR SUBCUT SCH (14:11)
[2018-07-12] MEDS: METHYLPREDNISOLONE SOD SUCC 40 MG/ML VIAL IV SCH ×2 (14:11→23:19)
[2018-07-12] MEDS ORDERED: IOHEXOL-350 100 ML BOTTLE ONE (14:24)
[2018-07-12 15:54] LABS: CREATINE KINASE MB FRACTION 3.2 ng/mL (0.5-3.6)
[2018-07-12 16:00] VITALS: BP 148/94
[2018-07-12] MEDS ORDERED: DEXTROSE 50% WATER 50ML SYRINGE IV PRN (16:30)
[2018-07-12] MEDS: INSULIN LISPRO 100 UNITS/ML SUBCUT SCH ×2 (17:50→21:55)
[2018-07-12] MEDS: BLOOD SUGAR DIAGNOSTIC STRIP TEST SCH ×2 (18:11→21:55)
[2018-07-12 19:47] LABS: *AMPHETAMINES SCREEN URINE NEGATIVE (NEGATIVE); *BARBITURATES SCREEN URINE NEGATIVE (NEGATIVE); *COCAINE SCREEN URINE PRESUMTIVE POSITIVE (NEGATIVE)
[2018-07-12 19:48] LABS: *BENZODIAZEPINES SCREEN URINE NEGATIVE (NEGATIVE); CANNABINOID URINE SCREEN NEGATIVE (NEGATIVE); METHADONE URINE SCREEN NEGATIVE (NEGATIVE); OPIATES URINE SCREEN PRESUMTIVE POSITIVE (NEGATIVE); PHENCYCLIDINE URINE SCREEN NEGATIVE (NEGATIVE)
[2018-07-12 20:00] VITALS: BP 143/84
[2018-07-12] MEDS: IPRATROPIUM/ALBUTEROL 0.5-3(2.5)MG/3ML NEB HHN SCH (20:20)
[2018-07-12] MEDS: PHENYTOIN SODIUM EXTENDED 100MG CAPSULE PO SCH (21:00)
[2018-07-13] VITALS: BP 140/68
[2018-07-13 00:09] LABS: CREATINE KINASE MB FRACTION 2.7 ng/mL (0.5-3.6)
[2018-07-13] MEDS: IPRATROPIUM/ALBUTEROL 0.5-3(2.5)MG/3ML NEB HHN SCH ×6 (00:59→20:22)
[2018-07-13 04:10] LABS: HIV SCREEN 4G Non Reactive (Non Reactive)
[2018-07-13 05:40] LABS: HEMATOCRIT. 33.1 % (42.0-52.0); HEMOGLOBIN. 10.8 g/dL (14.0-18.0); MEAN CORPUSCULAR HEMOGLOBIN 31.5 pg (28.0-32.0); MEAN CORPUSCULAR VOLUME 96.3 fL (80.0-94.0); MEAN PLATELET VOLUME 7.6 fl (7.4-10.4); PLATELET 235 x1000/uL (130-400); RED BLOOD CELL COUNT 3.44 mill/uL (4.7-6.1); RED CELL DISTRIBUTION WIDTH 15.4 % (11.6-14.6)
[2018-07-13] MEDS: METHYLPREDNISOLONE SOD SUCC 40 MG/ML VIAL IV SCH ×2 (06:45→14:35)
[2018-07-13] MEDS: BLOOD SUGAR DIAGNOSTIC STRIP TEST SCH ×4 (06:47→20:31)
[2018-07-13 07:31] LABS: PLATELET ESTIMATE NORMAL
[2018-07-13 07:36] LABS: CHLORIDE 106 mEq/L (98-107)
[2018-07-13 07:42] LABS: LDL CHOLESTEROL 95 mg/dL (5-100)
[2018-07-13 07:44] LABS: HDL CHOLESTEROL 101 mg/dL (40-59)
[2018-07-13] MEDS: INSULIN LISPRO 100 UNITS/ML SUBCUT SCH ×4 (07:50→20:33)
[2018-07-13 08:00] VITALS: BP 141/89
[2018-07-13 12:00] VITALS: BP 131/81
[2018-07-13] MEDS: ENOXAPARIN 40MG/0.4ML SYR SUBCUT SCH (12:28)
[2018-07-13] MEDS ORDERED: LORAZEPAM 0.5MG TABLET PO PRN (13:00)
[2018-07-13] MEDS ORDERED: HYDROCODONE/APAP 7.5/325MG 1 TAB TABLET PO PRN (13:00)
[2018-07-13] MEDS ORDERED: AMLODIPINE 5MG TABLET PO SCH (13:45)
[2018-07-13] MEDS ORDERED: TERBUTALINE SULFATE 1MG/ML VIAL SUBCUT NR (15:15)
[2018-07-13 16:00] VITALS: BP 145/87
[2018-07-13 20:00] VITALS: BP 137/79
[2018-07-13] MEDS: PHENYTOIN SODIUM EXTENDED 100MG CAPSULE PO SCH (20:32)
[2018-07-13 21:44] VITALS: BP 137/79
== END 2018-07-13 22:10 | disposition short-term general hospital (02) | DRG 816 ==
LOC: ER 04:21 → 6WST 09:32 → EDBEDREQTM 09:36 → EDBEDREQ 09:36 → ENRESERV 10:08
PROVIDERS: ADMIT Internal Medicine; ATTEND Internal Medicine
DX: T40.5X1A Poisoning by cocaine, accidental (unintentional), initial encounter (principal); J96.00 Acute respiratory failure, unspecified whether with hypoxia or hypercapnia; J68.0 Bronchitis and pneumonitis due to chemicals, gases, fumes and vapors; E87.5 Hyperkalemia; B19.20 Unspecified viral hepatitis C without hepatic coma; D64.9 Anemia, unspecified; E16.2 Hypoglycemia, unspecified; F17.200 Nicotine dependence, unspecified, uncomplicated; G40.909 Epilepsy, unspecified, not intractable, without status epilepticus; I10 Essential (primary) hypertension; J44.1 Chronic obstructive pulmonary disease with (acute) exacerbation; Z99.81 Dependence on supplemental oxygen; Y92.89 Other specified places as the place of occurrence of the external cause; Z82.49 Family history of ischemic heart disease and other diseases of the circulatory system; Z71.6 Tobacco abuse counseling
CPT/HCPCS: 36415; 71045; 71275; 80061; 80305; 82550; 82553; 82962; 83036; 83735; 83880; 84100; 84443; 84484; 86705; 86709; 86803; 87340; 87389; 93005; 93970; 96374; 96375; 97162; 97165; 97530; 97535; 99285; J1650; J1815; J1885; J2270; J2920; J2930; J3105; J7611; J7620; Q9967

== ENCOUNTER 2018-12-04 06:39 | Inpatient (IN) | payer MEDICAID ==
[~2018-12-04] VITALS: Ht 167.6 cm; Wt 54.5 kg
[~2018-12-04 06:39] MED LIST changes: -ASPI-1158 PO
[2018-12-04] MEDS ORDERED: MORPHINE SULFATE 4 MG/ML CPJ (NOT FOR IM USE) IV STA (07:03)
[2018-12-04] MEDS ORDERED: METHYLPREDNISOLONE SOD SUCC 125 MG/2 ML VIAL IV STA (07:03)
[2018-12-04] MEDS ORDERED: ONDANSETRON HCL 4MG/2ML INJ IV STA (07:03)
[2018-12-04] MEDS ORDERED: SODIUM CHLORIDE 0.9% 1,000 ML IV ONE (07:03)
[2018-12-04] MEDS ORDERED: LEVOFLOXACIN 750MG PREMIX 150 ML IV ONE (07:15)
[2018-12-04] MEDS ORDERED: IPRATROPIUM/ALBUTEROL 0.5-3(2.5)MG/3ML NEB HHN ONE (07:15)
[2018-12-04] MEDS ORDERED: ASPIRIN 81MG TABLET PO ONE (07:15)
[2018-12-04 07:25] LABS: BG BASE EXCESS -5.2 mmol/L (-2.0-2.0); BG CARBOXYHEMOGLOBIN 2.5 % (0.5-1.5); BG DEOXYHEMOGLOBIN 1.7 % (0.0-5.0); BG HCO3 ACT 20.6 mmol/L (22.0-26.0); BG METHEMOGLOBIN 0.5 % (0.0-1.5); BG OXYGEN SATURATION 98.2 % (92.0-98.5); BG OXYHEMOGLOBIN 95.3 % (94.0-97.0); BG PCO2 40.9 mmHg (35.0-45.0); BG PH 7.319 (7.350-7.450); BG PO2 127.8 mmHg (75.0-100.0); BG SAMPLE SITE RIGHT RADIAL; BG TOTAL HEMOGLOBIN 14.6 g/dL (12.0-18.0); BG VENT MODE NASAL CANNULA
[2018-12-04 07:42] LABS: BASOPHILS % 0.7 % (0.0-2.0); HEMATOCRIT. 40.7 % (42.0-52.0); HEMOGLOBIN. 13.5 g/dL (14.0-18.0); LYMPHOCYTES % 23.2 % (20.0-50.0); MEAN CORPUSCULAR HEMOGLOBIN 32.7 pg (28.0-32.0); MEAN CORPUSCULAR VOLUME 98.3 fL (80.0-94.0); MEAN PLATELET VOLUME 8.5 fl (7.4-10.4); MONOCYTES % 14.6 % (2.0-8.0); NEUTROPHILS % 57.5 % (40.0-76.0); PLATELET 165 x1000/uL (130-400); RED BLOOD CELL COUNT 4.14 mill/uL (4.7-6.1); RED CELL DISTRIBUTION WIDTH 13.3 % (11.6-14.6)
[2018-12-04 07:48] LABS: CHLORIDE 105 mEq/L (98-107)
[2018-12-04 07:53] LABS: ETHANOL BLOOD 37 mg/dL
[2018-12-04] MEDS ORDERED: CLONIDINE 0.1MG TABLET PO ONE (08:00)
[2018-12-04 12:00] VITALS: BP 139/93
[2018-12-04 12:20] VITALS: BP 139/93
[2018-12-04] MEDS ORDERED: ACETAMINOPHEN 325MG TABLET PO PRN (12:45)
[2018-12-04] MEDS ORDERED: IPRATROPIUM/ALBUTEROL 0.5-3(2.5)MG/3ML NEB HHN PRN (12:45)
[2018-12-04] MEDS ORDERED: DOCUSATE SODIUM 100MG CAPSULE PO PRN (12:45)
[2018-12-04] MEDS ORDERED: ONDANSETRON HCL 4MG/2ML INJ IV PRN (12:45)
[2018-12-04] MEDS ORDERED: LORAZEPAM 0.5MG TABLET PO PRN (12:45)
[2018-12-04] MEDS ORDERED: HYDROCODONE/ACETAMINOPHEN 5/325MG TABLET PO PRN (12:45)
[2018-12-04] MEDS ORDERED: AMLODIPINE 5MG TABLET PO SCH (13:45)
[2018-12-04] MEDS: NITROGLYCERIN OINT 1GM/INCH UDPKT TD SCH ×2 (14:00→21:05)
[2018-12-04] MEDS: IPRATROPIUM/ALBUTEROL 0.5-3(2.5)MG/3ML NEB HHN SCH ×2 (15:10→20:55)
[2018-12-04] MEDS: METHYLPREDNISOLONE SOD SUCC 125 MG/2 ML VIAL IV SCH ×2 (15:37→21:04)
[2018-12-04] MEDS: BUDESONIDE 0.5MG/2ML NEB HHN SCH ×2 (15:54→20:55)
[2018-12-04 16:00] VITALS: BP 156/107
[2018-12-04] MEDS: MORPHINE SULFATE 2 MG/ML CPJ (NOT FOR IM USE) IV PRN ×2 (17:37→21:39)
[2018-12-04 20:22] VITALS: BP 158/99
[2018-12-04] MEDS: AMLODIPINE 5MG TABLET PO SCH (21:04)
[2018-12-04] MEDS: PHENYTOIN SODIUM EXTENDED 100MG CAPSULE PO SCH (21:04)
[2018-12-04] MEDS: MONTELUKAST SODIUM 10MG TABLET PO SCH (21:04)
[2018-12-05] VITALS: BP 130/78
[2018-12-05] MEDS: IPRATROPIUM/ALBUTEROL 0.5-3(2.5)MG/3ML NEB HHN SCH ×5 (01:02→20:45)
[2018-12-05 04:31] VITALS: BP 122/84
[2018-12-05] MEDS: METHYLPREDNISOLONE SOD SUCC 125 MG/2 ML VIAL IV SCH ×3 (05:15→21:37)
[2018-12-05] MEDS: NITROGLYCERIN OINT 1GM/INCH UDPKT TD SCH ×3 (05:16→21:38)
[2018-12-05] MEDS: MORPHINE SULFATE 2 MG/ML CPJ (NOT FOR IM USE) IV PRN ×4 (05:50→23:32)
[2018-12-05 06:15] LABS: HEMATOCRIT. 37.2 % (42.0-52.0); HEMOGLOBIN. 12.7 g/dL (14.0-18.0); MEAN CORPUSCULAR HEMOGLOBIN 33.1 pg (28.0-32.0); MEAN PLATELET VOLUME 9.8 fl (7.4-10.4); PLATELET 158 x1000/uL (130-400); RED BLOOD CELL COUNT 3.83 mill/uL (4.7-6.1); RED CELL DISTRIBUTION WIDTH 13.1 % (11.6-14.6)
[2018-12-05 06:25] LABS: CHLORIDE 103 mEq/L (98-107)
[2018-12-05 07:26] LABS: BG BASE EXCESS 1.6 mmol/L (-2.0-2.0); BG CARBOXYHEMOGLOBIN 0.9 % (0.5-1.5); BG DEOXYHEMOGLOBIN 7.6 % (0.0-5.0); BG HCO3 ACT 26.6 mmol/L (22.0-26.0); BG METHEMOGLOBIN 0.2 % (0.0-1.5); BG OXYGEN SATURATION 92.3 % (92.0-98.5); BG OXYHEMOGLOBIN 91.3 % (94.0-97.0); BG PCO2 43.7 mmHg (35.0-45.0); BG PH 7.403 (7.350-7.450); BG PO2 64.8 mmHg (75.0-100.0); BG SAMPLE SITE RIGHT RADIAL; BG TOTAL HEMOGLOBIN 13.8 g/dL (12.0-18.0); BG VENT MODE NASAL CANNULA
[2018-12-05] MEDS: BUDESONIDE 0.5MG/2ML NEB HHN SCH ×2 (07:54→20:45)
[2018-12-05 08:00] VITALS: BP 132/78
[2018-12-05] MEDS: AMLODIPINE 5MG TABLET PO SCH ×2 (08:16→21:37)
[2018-12-05] MEDS: GUAIFENESIN-DM 200MG-20MG/10ML UDC PO PRN (09:51)
[2018-12-05 12:00] VITALS: BP 127/73
[2018-12-05 13:14] LABS: PLATELET ESTIMATE NORMAL
[2018-12-05 16:00] VITALS: BP 126/74
[2018-12-05 20:00] VITALS: BP 136/87
[2018-12-05] MEDS: PHENYTOIN SODIUM EXTENDED 100MG CAPSULE PO SCH (21:37)
[2018-12-05] MEDS: MONTELUKAST SODIUM 10MG TABLET PO SCH (21:37)
[2018-12-06] VITALS: BP 140/79
[2018-12-06] MEDS: IPRATROPIUM/ALBUTEROL 0.5-3(2.5)MG/3ML NEB HHN SCH ×6 (00:28→19:53)
[2018-12-06 04:00] VITALS: BP 141/82
[2018-12-06] MEDS: NITROGLYCERIN OINT 1GM/INCH UDPKT TD SCH ×3 (05:04→22:00)
[2018-12-06] MEDS: METHYLPREDNISOLONE SOD SUCC 125 MG/2 ML VIAL IV SCH ×3 (05:04→22:00)
[2018-12-06] MEDS: MORPHINE SULFATE 2 MG/ML CPJ (NOT FOR IM USE) IV PRN ×5 (05:35→23:04)
[2018-12-06 06:57] LABS: BASOPHILS % 0.1 % (0.0-2.0); HEMATOCRIT. 39.2 % (42.0-52.0); HEMOGLOBIN. 12.9 g/dL (14.0-18.0); LYMPHOCYTES % 7.2 % (20.0-50.0); MEAN CORPUSCULAR HEMOGLOBIN 32.5 pg (28.0-32.0); MEAN CORPUSCULAR VOLUME 98.8 fL (80.0-94.0); MEAN PLATELET VOLUME 9.6 fl (7.4-10.4); MONOCYTES % 10.5 % (2.0-8.0); NEUTROPHILS % 82.2 % (40.0-76.0); PLATELET 165 x1000/uL (130-400); RED BLOOD CELL COUNT 3.97 mill/uL (4.7-6.1); RED CELL DISTRIBUTION WIDTH 13.1 % (11.6-14.6)
[2018-12-06 07:33] LABS: CHLORIDE 103 mEq/L (98-107)
[2018-12-06 07:35] LABS: VITAMIN B12 SERUM 581 pg/mL (211-911)
[2018-12-06 07:41] LABS: TOTAL IRON BINDING CAPACITY 320 ug/dL (250-450)
[2018-12-06 08:09] VITALS: BP 148/90
[2018-12-06 08:23] LABS: FERRITIN 134 ng/mL (22-322)
[2018-12-06] MEDS: BUDESONIDE 0.5MG/2ML NEB HHN SCH ×2 (09:16→19:53)
[2018-12-06] MEDS: AMLODIPINE 5MG TABLET PO SCH ×2 (09:27→22:00)
[2018-12-06] MEDS ORDERED: TERBUTALINE SULFATE 1MG/ML VIAL SUBCUT NR (09:45)
[2018-12-06] MEDS ORDERED: IPRATROPIUM/ALBUTEROL 0.5-3(2.5)MG/3ML NEB HHN PRN (09:45)
[2018-12-06] MEDS: LOSARTAN POTASSIUM 50 MG TABLET PO SCH (11:48)
[2018-12-06] MEDS: THIAMINE HCL 100MG TABLET PO SCH (11:50)
[2018-12-06] MEDS: FOLIC ACID 1MG TABLET PO SCH (11:51)
[2018-12-06] MEDS: MULTIVITAMINS,THER W-MINERALS TABLET PO SCH (11:51)
[2018-12-06] MEDS: NICOTINE 14MG PATCH TD SCH (11:51)
[2018-12-06 12:00] VITALS: BP 123/80
[2018-12-06 16:00] VITALS: BP 132/85
[2018-12-06 20:00] VITALS: BP 137/82
[2018-12-06] MEDS: MONTELUKAST SODIUM 10MG TABLET PO SCH (22:00)
[2018-12-06] MEDS: PHENYTOIN SODIUM EXTENDED 100MG CAPSULE PO SCH (23:00)
[2018-12-07] VITALS (7 sets, daily range): BP systolic 93–138; BP diastolic 54–84
[2018-12-07] MEDS: IPRATROPIUM/ALBUTEROL 0.5-3(2.5)MG/3ML NEB HHN SCH ×5 (00:27→15:23)
[2018-12-07] MEDS: METHYLPREDNISOLONE SOD SUCC 125 MG/2 ML VIAL IV SCH ×2 (05:29→13:40)
[2018-12-07] MEDS: NITROGLYCERIN OINT 1GM/INCH UDPKT TD SCH ×2 (05:29→13:40)
[2018-12-07] MEDS: MORPHINE SULFATE 2 MG/ML CPJ (NOT FOR IM USE) IV PRN ×2 (06:26→12:40)
[2018-12-07 06:27] LABS: CHLORIDE 104 mEq/L (98-107)
[2018-12-07 07:14] LABS: HEMATOCRIT. 37.5 % (42.0-52.0); HEMOGLOBIN. 12.4 g/dL (14.0-18.0); MEAN CORPUSCULAR HEMOGLOBIN 32.4 pg (28.0-32.0); MEAN CORPUSCULAR VOLUME 97.8 fL (80.0-94.0); MEAN PLATELET VOLUME 9.4 fl (7.4-10.4); PLATELET 166 x1000/uL (130-400); RED BLOOD CELL COUNT 3.84 mill/uL (4.7-6.1); RED CELL DISTRIBUTION WIDTH 13.1 % (11.6-14.6)
[2018-12-07] MEDS: BUDESONIDE 0.5MG/2ML NEB HHN SCH (07:45)
[2018-12-07] MEDS: GUAIFENESIN-DM 200MG-20MG/10ML UDC PO PRN (08:32)
[2018-12-07] MEDS: FOLIC ACID 1MG TABLET PO SCH (08:32)
[2018-12-07] MEDS: THIAMINE HCL 100MG TABLET PO SCH (08:32)
[2018-12-07] MEDS: MULTIVITAMINS,THER W-MINERALS TABLET PO SCH (08:33)
[2018-12-07] MEDS: NICOTINE 14MG PATCH TD SCH (08:33)
[2018-12-07] MEDS: AMLODIPINE 5MG TABLET PO SCH (08:33)
[2018-12-07] MEDS: LOSARTAN POTASSIUM 50 MG TABLET PO SCH (08:33)
[2018-12-07 10:58] LABS: PLATELET ESTIMATE NORMAL
[2018-12-07] MEDS ORDERED: BUDESONIDE 0.5MG/2ML NEB HHN SCH (21:00)
[2018-12-07] MEDS ORDERED: METHYLPREDNISOLONE SOD SUCC 40 MG/ML VIAL IV SCH (22:00)
== END 2018-12-07 20:30 | disposition short-term general hospital (02) | DRG 140 ==
LOC: ER 06:39 → 6WST 08:21 → EDBEDREQTM 08:23 → EDBEDREQ 08:23 → ENRESERV 11:12
PROVIDERS: ADMIT Internal Medicine; ATTEND Internal Medicine
PROC: 5A09357 Assistance with Respiratory Ventilation, Less than 24 Consecutive Hours, Continuous Positive Airway Pressure (ICD-10-PCS; principal; 2018-12-06)
DX: J44.1 Chronic obstructive pulmonary disease with (acute) exacerbation (principal); J96.20 Acute and chronic respiratory failure, unspecified whether with hypoxia or hypercapnia; E87.2 Acidosis; Z99.81 Dependence on supplemental oxygen; B18.2 Chronic viral hepatitis C; G40.909 Epilepsy, unspecified, not intractable, without status epilepticus; Y90.1 Blood alcohol level of 20-39 mg/100 ml; J98.11 Atelectasis; F17.210 Nicotine dependence, cigarettes, uncomplicated; I11.9 Hypertensive heart disease without heart failure; R07.89 Other chest pain; K63.9 Disease of intestine, unspecified; B19.20 Unspecified viral hepatitis C without hepatic coma; Z71.6 Tobacco abuse counseling; F10.129 Alcohol abuse with intoxication, unspecified; J68.0 Bronchitis and pneumonitis due to chemicals, gases, fumes and vapors
CPT/HCPCS: 36415; 36600; 71045; 80048; 80320; 82375; 82607; 82728; 82805; 83540; 83550; 83605; 83880; 84484; 93005; 93306; 94640; 96374; 99285; J1956; J2270; J2405; J2930; J3105; J7030; J7620; J7626; G0480